=== PATIENT | male | born 1965 ===

== ENCOUNTER 2023-10-28 14:36 | Outpatient (REF) | payer OTHER, SELFPAY ==
[2023-10-28 14:57] LABS: HCT 47.9 % (40.0-50.0); HGB 15.9 g/dL (13.5-17.5); MCHC 33.2 % (32.0-36.0); MCV 85 fL (80-95); MPV 9.2 fL (8.0-11.0); Platelet Count 249 10^3/uL (130-400); RBC 5.67 10^6/uL (4.36-5.78); RDW 13.7 % (11.8-14.1); RDW-SD 42.3 fL; WBC 5.76 10^3/uL (4.4-10.8)
[2023-10-28 15:46] LABS: Hemoglobin A1C 5.9 % (<5.7)
[2023-10-28 15:49] LABS: ALT 56 U/L (16-63); AST 24 U/L (15-37); Alkaline Phosphatase 83 U/L (46-116); Anion Gap 5.7 mmol/L (3-11); BUN 21 mg/dL (7-18); Bilirubin, Total 0.5 mg/dL (0.2-1.0); CO2 29.3 mmol/L (21.0-32.0); Calcium 9.2 mg/dL (8.5-10.1); Calculated LDL 195 mg/dL (<100); Chloride 103 mmol/L (98-107); Cholesterol 283 mg/dL (<200); Estimated GFR 88.33 (mL/min/1.73m2); Glucose 136 mg/dL (74-106); HDL Cholesterol 57 mg/dL (40-60); Potassium 4.4 mmol/L (3.5-5.1); Sodium 138 mmol/L (136-145); TSH (W/Ref FT4) 2.78 uIU/mL (0.36-3.74); Total Protein 7.5 g/dL (6.4-8.2); Triglyceride 155 mg/dL (<150)
== END 2023-10-28 14:37 | disposition home or self-care (01) ==
LOC: NCHCN 14:36
PROVIDERS: PCP Family Medicine; Visit Provider Family Medicine
DX: I10 Essential (primary) hypertension (principal); R53.83 Other fatigue; R79.89 Other specified abnormal findings of blood chemistry; E66.3 Overweight; Z13.220 Encounter for screening for lipoid disorders
CPT/HCPCS: 80053; 80061; 85027; 83036; 84443